=== PATIENT | male | born 1970 | race African-American/Black ===

== ENCOUNTER 2017-01-29 20:00 | Emergency (ER) | payer OTHER ==
[2017-01-29 20:01] VITALS: BP 142/88; PULSE 71; RESP 16; TEMP 99.2; O2SAT 99
--- NOTE | 2017-01-29 20:13 | PD ---
HPI Chief Complaint: Skin Problem Time Seen by Provider: 20:09 Travel History International Travel<30 days: No Contact w/Intl Traveler<30days: No Traveled to known affect area: No History of Present Illness HPI 46-year-old male with history of homelessness and a psychiatric disorder that he would rather not discuss, presents to the emergency department for evaluation of a blister on his right great toe and requesting antipsychotic medication. Patient has been off of his medication since August. He states he was sitting on the side of the road when police approached him. He allegedly told them that he had been off his medication so they brought him to the emergency department. Patient adamantly denies any suicidal or homicidal ideations. He states that Tarik Salmeron wants him to be on Latuda, however he does not like this medication so he does not take it and he would like what he was taking before. He states that he gets blisters on his feet but does not talk about why. Denies any recent illnesses, fever, or chills. Patient states that he is homeless. Denies any other symptoms at this time. History Past Medical Histgory Medical History: Denies Significant Hx Social History Alcohol Use: No Tobacco Use: No Allergies-Medications (Allergen,Severity, Reaction): Coded Allergies: niacin (Verified Allergy, Severe, 01/29/17) Review of Systems Except as stated in HPI: all other systems reviewed are Neg Physical Exam Narrative GENERAL: Well-nourished male patient, ambulatory and in no acute distress. SKIN: Focused skin assessment warm/dry. Patient does have a 2 cm in diameter blister on the anterior lateral aspect of his right great toe. This lies adjacent to where his flip-flop rubs. He has dry callused plantar surface of his feet. HEAD: Atraumatic. Normocephalic. EYES: Pupils equal and round. No scleral icterus. No injection or drainage. ENT: No nasal bleeding or discharge. Mucous membranes pink and moist. NECK: Trachea midline. No JVD. CARDIOVASCULAR: Regular rate and rhythm. No murmur appreciated. RESPIRATORY: No accessory muscle use. Clear to auscultation. Breath sounds equal bilaterally. GASTROINTESTINAL: Abdomen soft, non-tender, nondistended. Hepatic and splenic margins not palpable. MUSCULOSKELETAL: No obvious deformities. No clubbing. No cyanosis. No edema. NEUROLOGICAL: Awake and alert. No obvious cranial nerve deficits. Motor grossly within normal limits. Normal speech. Data Data Last Documented VS Vital Signs Date Time Temp Pulse Resp B/P (MAP) Pulse Ox O2 Delivery O2 Flow Rate FiO2 01/29/17 20:01 99.2 71 16 142/88 (106) 99 Room Air MDM Medical Screen Exam Complete: Yes Emergency Medical Condition: No Differential Diagnosis blister on R great toe; request for med refill; homelessness Narrative Course 46-year-old male presents to emergency department for evaluation of a blister on his right great toe and requesting antipsychotic medication that he has not been on since August of this year. Patient appears without distress. He adamantly denies any suicidal or homicidal ideations. Patient's blister is consistent with a friction blister. There is no surrounding erythema or edema. I also explained the patient that I could not refill medication that he has not been on for several months. He verbalizes understanding. Financial counselor is contacted as there are no urgent or emergent needs for medical intervention identified. A medical screening exam was performed: At the time of evaluation the presenting medical condition was determined not to be of an emergent nature. The patient was given the option of receiving additional care, but declined. Patient was given options for additional community resources from which to obtain care. The Patient Has Been advised to seek medical attention for their presenting complaint. The patient has been advised to return to the ER at any time if an emergent condition develops. Primary Impression: Encounter for medical screening examination Condition: Stable Susan Pierce Jan 29, 2017 20:13
== END 2017-01-29 20:30 | disposition left against medical advice (07) ==
LOC: NEPK 20:00
DX: Z04.8 Encounter for examination and observation for other specified reasons (principal); S90.421A Blister (nonthermal), right great toe, initial encounter; X58.XXXA Exposure to other specified factors, initial encounter; Y93.01 Activity, walking, marching and hiking
CPT/HCPCS: 99281

== ENCOUNTER 2017-01-30 20:24 | Emergency (ER) | payer OTHER ==
[2017-01-30 20:51] VITALS: BP 131/74; PULSE 80; RESP 16; TEMP 98.3; O2SAT 99
--- NOTE | 2017-01-30 23:21 | PD ---
HPI Chief Complaint: Skin Problem Time Seen by Provider: 23:12 Travel History International Travel<30 days: No Contact w/Intl Traveler<30days: No Traveled to known affect area: No History of Present Illness HPI Patient is a 46-year-old male presents emergency department with blisters on his feet. He also states that he has not been taking his psychiatric medicines. Patient states both the symptoms been going on since August. He did present to the emergency department yesterday for similar complaint was marked EM no. Patient states he has been seen once or act for but doesn't like the way the medicine he is prescribed there makes it feels very doesn't take it. He denies any suicidal homicidal ideation. Denies any audiovisual hallucinations. Patient is homeless and states his been walking the street without socks. Denies any fevers denies any nausea vomiting diarrhea constipation headache neck pain. PFSH Social History Alcohol Use: No Tobacco Use: No Allergies-Medications (Allergen,Severity, Reaction): Coded Allergies: niacin (Verified Allergy, Severe, 01/30/17) Reported Meds & Prescriptions Reported Meds & Active Scripts Active No Active Prescriptions or Reported Medications Review of Systems Except as stated in HPI: all other systems reviewed are Neg Physical Exam Narrative GENERAL: Well-nourished, well-developed patient. Unkempt, no obvious distress. SKIN: Small blister noted on the dorsum of his right great toe. No surrounding edema, his R do been popped by the patient. There is also some hard callus formation on multiple aspects and feet all of which noninfectious. HEAD: Normocephalic. Atraumatic EYES: No scleral icterus. No injection or drainage. NECK: Supple, trachea midline. No JVD or lymphadenopathy. CARDIOVASCULAR: Regular rate and rhythm without murmurs, gallops, or rubs. RESPIRATORY: Breath sounds equal bilaterally. No accessory muscle use. GASTROINTESTINAL: Abdomen soft, non-tender, nondistended. MUSCULOSKELETAL: No cyanosis, or edema. BACK: Nontender without obvious deformity. No CVA tenderness. Psychiatric: Denies suicidal homicidal ideation. Denies audiovisual hallucinations. Mood and affect normal, judgment and insight normal. Data Data Last Documented VS Vital Signs Date Time Temp Pulse Resp B/P (MAP) Pulse Ox O2 Delivery O2 Flow Rate FiO2 01/30/17 23:57 01/30/17 20:51 98.3 80 16 99 Room Air [facility] Medical Decision Making Medical Screen Exam Complete: Yes Emergency Medical Condition: No Differential Diagnosis Skin blister, chronic schizophrenia, poor social circumstance. Narrative Course Patient roomed in emergency Department, there is no emergent medical condition here. Discussed symptomatic management with the patient and need for follow-up with the [facility] for [facility]. Discussed return to ED criteria. Diagnosis Primary Impression: Blister of foot Referrals: [facility] Patient Instructions: Zoey (PATSY), General Instructions Scripts No Active Prescriptions or Reported Meds Disposition: 01 DISCHARGE HOME Condition: Stable Carlos Kovacs MD Jan 30, 2017 23:21
== END 2017-01-30 23:57 | disposition home or self-care (01) ==
LOC: NEPD 20:24
DX: S90.421A Blister (nonthermal), right great toe, initial encounter (principal); S90.822A Blister (nonthermal), left foot, initial encounter; X58.XXXA Exposure to other specified factors, initial encounter; Y93.01 Activity, walking, marching and hiking
CPT/HCPCS: 99283